=== PATIENT | female | born 1980 | race Caucasian/White ===

== ENCOUNTER 2018-03-04 16:37 | Emergency (ER) | payer MEDICAID ==
[~2018-03-04] VITALS: Ht 152.4 cm; Wt 54.0 kg
[~2018-03-04 16:37] MED LIST: HYDR-523; TRAMADOL; VICODIN; [UNRECOGNIZED DRUG - OTHER]
[2018-03-04] MEDS ORDERED: SODIUM CHLORIDE 0.9% 1,000 ML IV ONE (17:03)
[2018-03-04] MEDS ORDERED: LEVETIRACETAM 1000MG/100ML 100 ML IV ONE (17:15)
[2018-03-04] MEDS ORDERED: CEFTRIAXONE 1 G PREMIX 50 ML IV ONE (18:00)
[2018-03-04 18:02] LABS: BASOPHILS % 0.1 % (0.0-2.0); HEMATOCRIT. 36.3 % (36.0-48.0); HEMOGLOBIN. 11.9 g/dL (12.0-16.0); LYMPHOCYTES % 10.6 % (20.0-50.0); MEAN CORPUSCULAR HEMOGLOBIN 29.4 pg (28.0-32.0); MEAN CORPUSCULAR VOLUME 89.9 fL (81.0-99.0); MEAN PLATELET VOLUME 8.2 fl (7.4-10.4); MONOCYTES % 4.1 % (2.0-8.0); NEUTROPHILS % 85.2 % (40.0-76.0); PLATELET 390 x1000/uL (130-400); RED BLOOD CELL COUNT 4.04 mill/uL (4.2-5.4); RED CELL DISTRIBUTION WIDTH 13.3 % (11.6-14.6)
[2018-03-04 18:06] LABS: CHLORIDE 104 mEq/L (98-107)
[2018-03-04 18:10] LABS: ETHANOL BLOOD < 10 mg/dL
[2018-03-04 18:12] LABS: *BARBITURATES SCREEN URINE NEGATIVE (NEGATIVE); CANNABINOID URINE SCREEN NEGATIVE (NEGATIVE); METHADONE URINE SCREEN NEGATIVE (NEGATIVE); PHENCYCLIDINE URINE SCREEN NEGATIVE (NEGATIVE)
[2018-03-04 18:13] LABS: *AMPHETAMINES SCREEN URINE NEGATIVE (NEGATIVE); *COCAINE SCREEN URINE NEGATIVE (NEGATIVE)
[2018-03-04 18:25] LABS: *BENZODIAZEPINES SCREEN URINE PRESUMTIVE POSITIVE (NEGATIVE); OPIATES URINE SCREEN PRESUMTIVE POSITIVE (NEGATIVE)
[2018-03-04 19:56] LABS: CLARITY URINE CLOUDY (CLEAR); COLOR URINE ORANGE (YELLOW); KETONES URINE NEGATIVE (NEGATIVE); LEUKOCYTE ESTERASE URINE NEGATIVE (NEGATIVE); NITRITE URINE NEGATIVE (NEGATIVE); OCCULT BLOOD URINE 3+ (NEGATIVE); PH URINE 5.5 (4.5-8.0); PROTEIN URINE NEGATIVE (NEGATIVE); SPECIFIC GRAVITY URINE 1.011 (1.005-1.030); UROBILINOGEN URINE 0.2 E.U./dL (0.2-1.0)
[2018-03-04 21:52] VITALS: BP 125/70
== END 2018-03-04 21:54 | disposition home or self-care (01) ==
LOC: ER 16:44
DX: R56.9 Unspecified convulsions (principal)
CPT/HCPCS: 36415; 80048; 80305; 81003; 81025; 85025; 96365; 99283; G0482; J1953; J7030

== ENCOUNTER 2019-01-23 19:27 | Emergency (ER) | payer MEDICAID ==
[~2019-01-23] VITALS: Ht 165.1 cm; Wt 66.0 kg
[2019-01-23 21:22] VITALS: BP 146/88
== END 2019-01-23 21:38 | disposition left against medical advice (07) ==
LOC: ER 19:27
DX: R42 Dizziness and giddiness (principal); Z53.21 Procedure and treatment not carried out due to patient leaving prior to being seen by health care provider

== ENCOUNTER 2019-02-25 11:49 | Emergency (ER) | payer MEDICAID ==
[~2019-02-25] VITALS: Ht 157.5 cm; Wt 64.0 kg
[2019-02-25] MEDS ORDERED: ONDANSETRON HCL 4MG/2ML INJ IV STA (12:53)
[2019-02-25] MEDS ORDERED: SODIUM CHLORIDE 0.9% 1,000 ML IV ONE (12:53)
[2019-02-25] MEDS ORDERED: KETOROLAC 30MG/ML VIAL IV STA (12:53)
[2019-02-25] MEDS ORDERED: LEVETIRACETAM 500MG PREMIX 100 ML IV ONE (13:00)
[2019-02-25] MEDS ORDERED: MORPHINE SULFATE 2 MG/ML CPJ (NOT FOR IM USE) IV ONE (13:00)
[2019-02-25 14:07] LABS: BASOPHILS % 0.7 % (0.0-2.0); HEMATOCRIT. 37.6 % (36.0-48.0); HEMOGLOBIN. 12.2 g/dL (12.0-16.0); LYMPHOCYTES % 26.6 % (20.0-50.0); MEAN CORPUSCULAR HEMOGLOBIN 27.3 pg (28.0-32.0); MEAN CORPUSCULAR VOLUME 83.9 fL (81.0-99.0); MONOCYTES % 6.2 % (2.0-8.0); NEUTROPHILS % 66.5 % (40.0-76.0); PLATELET 407 x1000/uL (130-400); RED BLOOD CELL COUNT 4.49 mill/uL (4.2-5.4); RED CELL DISTRIBUTION WIDTH 15.7 % (11.6-14.6)
[2019-02-25 14:12] LABS: CHLORIDE 103 mEq/L (98-107)
[2019-02-25 14:17] LABS: ETHANOL BLOOD < 10 mg/dL
[2019-02-25 14:49] LABS: CLARITY URINE CLEAR (CLEAR); COLOR URINE YELLOW (YELLOW); KETONES URINE NEGATIVE (NEGATIVE); LEUKOCYTE ESTERASE URINE NEGATIVE (NEGATIVE); NITRITE URINE NEGATIVE (NEGATIVE); OCCULT BLOOD URINE 2+ (NEGATIVE); PH URINE 6.5 (4.5-8.0); PROTEIN URINE NEGATIVE (NEGATIVE); SPECIFIC GRAVITY URINE 1.013 (1.005-1.030); UROBILINOGEN URINE 0.2 E.U./dL (0.2-1.0)
[2019-02-25 15:43] LABS: *AMPHETAMINES SCREEN URINE NEGATIVE (NEGATIVE); *BARBITURATES SCREEN URINE NEGATIVE (NEGATIVE); *BENZODIAZEPINES SCREEN URINE NEGATIVE (NEGATIVE); *COCAINE SCREEN URINE NEGATIVE (NEGATIVE); METHADONE URINE SCREEN NEGATIVE (NEGATIVE)
[2019-02-25 15:44] LABS: CANNABINOID URINE SCREEN NEGATIVE (NEGATIVE); PHENCYCLIDINE URINE SCREEN NEGATIVE (NEGATIVE)
[2019-02-25 15:47] LABS: OPIATES URINE SCREEN PRESUMTIVE POSITIVE (NEGATIVE)
[2019-02-25 18:08] VITALS: BP 139/52
== END 2019-02-25 18:11 | disposition home or self-care (01) ==
LOC: ER 11:49
DX: R56.9 Unspecified convulsions (principal); R51 Headache
CPT/HCPCS: 36415; 70450; 80053; 80305; 80320; 81003; 85025; 93005; 96365; 96375; 99284; J1885; J1953; J2270; J2405; J7030; Z7610; G0480

== ENCOUNTER 2021-06-12 12:11 | Emergency (ER) | payer MEDICAID ==
[~2021-06-12] VITALS: Ht 167.6 cm; Wt 69.0 kg
[2021-06-12] MEDS ORDERED: MORPHINE SULFATE 4 MG/ML CPJ (NOT FOR IM USE) IV STA ×2 (12:28→12:48)
[2021-06-12] MEDS ORDERED: ONDANSETRON HCL 4MG/2ML INJ IV STA (12:48)
[2021-06-12] MEDS ORDERED: SODIUM CHLORIDE 0.9% 1,000 ML IV ONE (13:00)
[2021-06-12] MEDS ORDERED: LIDOCAINE HCL/PF 1% 10 MG/ML 5ML VIAL INFIL ONE (13:00)
[2021-06-12 13:13] LABS: BASOPHILS % 0.6 % (0.0-2.0); HEMATOCRIT. 35.8 % (36.0-48.0); HEMOGLOBIN. 11.8 g/dL (12.0-16.0); LYMPHOCYTES % 24.4 % (20.0-50.0); MEAN CORPUSCULAR HEMOGLOBIN 27.1 pg (28.0-32.0); MEAN CORPUSCULAR VOLUME 81.8 fL (81.0-99.0); MEAN PLATELET VOLUME 7.6 fl (7.4-10.4); MONOCYTES % 8.5 % (2.0-8.0); NEUTROPHILS % 66.5 % (40.0-76.0); PLATELET 417 x1000/uL (130-400); RED BLOOD CELL COUNT 4.37 mill/uL (4.2-5.4); RED CELL DISTRIBUTION WIDTH 15.4 % (11.6-14.6)
[2021-06-12] MEDS: LIDOCAINE HCL 1% 20ML VIAL (Pyxis) INJ INFIL NR ×2 (13:14→15:32)
[2021-06-12 13:21] LABS: CHLORIDE 107 mEq/L (98-107); HCG SCREEN NEGATIVE
[2021-06-12] MEDS ORDERED: HYDROMORPHONE HCL/PF 2MG/ML CPJ IV ONE (13:30)
[2021-06-12] MEDS ORDERED: MORPHINE SULFATE 4 MG/ML CPJ (NOT FOR IM USE) IV ONE (15:15)
[2021-06-12] MEDS ORDERED: ETOMIDATE 2MG/ML 10ML VIAL IV ONE (15:15)
[2021-06-12] MEDS ORDERED: IBUP-2028 MT (17:28)
[2021-06-12] MEDS ORDERED: HYDR-4001 MT (17:28)
[2021-06-12 18:10] VITALS: BP 134/84
== END 2021-06-12 18:17 | disposition home or self-care (01) ==
LOC: ER 12:11
DX: S52.592A Other fractures of lower end of left radius, initial encounter for closed fracture (principal); R56.9 Unspecified convulsions; W01.0XXA Fall on same level from slipping, tripping and stumbling without subsequent striking against object, initial encounter; Y93.9 Activity, unspecified; Y92.9 Unspecified place or not applicable
CPT/HCPCS: 24650; 36415; 73090; 73100; 73110; 73120; 73560; 80048; 84703; 85025; 96361; 96374; 96375; 99152; 99285; J1170; J2270; J2405; J3490; J7030